=== PATIENT | female | born 1945 ===

== ENCOUNTER 2017-05-26 05:40 | Day surgery (SDC) | payer OTHER ==
[~2017-05-26 05:40] MED LIST: CLONAZEPAM0.5 MG; DIOVAN HCT 160-1 TAB; GLIPIZIDE-METFO1 TA5; KETO10TA2 PO; ORPH100T PO; RESTORIL22.5 MG; RISPERDAL0.5 MG; XANAX0.25 MG
[2017-05-26] MEDS ORDERED: TRAM1TAB98 PO (11:31)
[2017-05-26] MEDS ORDERED: DUI500 PO (11:31)
== END 2017-05-26 15:35 | disposition home or self-care (01) ==
LOC: CIR.AMB 05:40
DX: M23.322 Other meniscus derangements, posterior horn of medial meniscus, left knee (principal); M23.352 Other meniscus derangements, posterior horn of lateral meniscus, left knee; M17.12 Unilateral primary osteoarthritis, left knee